=== PATIENT | female | born 1960 | race Caucasian/White ===

== ENCOUNTER 2017-03-17 17:23 | Emergency (ER) | payer BC ==
[2017-03-17] MEDS ORDERED: Bacitracin Oint 1 GM U/D Packet TOP ONE (18:58)
[2017-03-17 19:03] VITALS: BP 147/89
--- NOTE | 2017-03-17 19:31 | EDM.PDOC ---
[id number] 4d PUNCTURED FOOT Time Seen by Provider: 03/17/17 19:05 Source of Information: Reports: Patient History Limitations: Reports: No Limitations - History of Present Illness INITIAL COMMENTS - FREE TEXT/NARRATIVE: 56-year-old female with an injury to the arch of her right foot. [place] dock jamming her foot into the metal rim of a tire. She sustained a laceration and then had to walk across a dirty beach. She has a flap laceration in the arch of the foot which is very contaminated. Onset: Today Duration: Hour(s): (A few hours ago) - Related Data Allergies Allergy/AdvReac Type Severity Reaction Status Date / Time No Known Allergies Allergy Verified 03/17/17 18:54 Home Meds: Home Meds Aspirin 03/17/17 [History] Escitalopram [Lexapro] 03/17/17 [History] Levothyroxine [Synthroid] 03/17/17 [History] Lisinopril/Hydrochlorothiazide [Lisinopril-Hctz 20-12.5 mg Tab] 03/17/17 [ History] Pravastatin [Pravachol] 03/17/17 [History] rOPINIRole HCl [Ropinirole ER] 03/17/17 [History] Past Medical History Cardiovascular History: Reports: High Cholesterol, Hypertension - Past Surgical History GI Surgical History: Reports: Bariatric Procedure Social & Family History - Tobacco Use Smoking Status *Q: Never Smoker ED ROS GENERAL - Review of Systems Review Of Systems: See Below Constitutional: Denies: Fever, Chills Cardiovascular: Denies: Chest Pain Psychiatric: Reports: No Symptoms ED EXAM, SKIN/RASH Exam: See Below Exam Limited By: No Limitations General Appearance: Alert, No Apparent Distress Respiratory/Chest: No Respiratory Distress Extremities: Other (Rest of the exam is limited to the right foot. The patient has a 2.5 cm flap laceration and partial avulsion in the arch of the right foot. It is embedded with sand and dirt.) Course - Vital Signs Last Recorded V/S: Last Vital Signs Temp 97.3 F 03/17/17 19:01 Pulse 67 03/17/17 19:01 Resp 14 03/17/17 19:01 BP 147/89 H 03/17/17 19:01 Pulse Ox 98 03/17/17 19:01 - Orders/Labs/Meds Orders: Active Orders 24 hr Category Date Time Status Vaccines to be Administered [RC] PER UNIT ROUTINE Care 03/17/17 19:37 Active Meds: Medications Discontinued Medications Generic Name Dose Route Start Last Admin Trade Name Cielo PRN Reason Stop Dose Admin Bacitracin 1 dose 03/17/17 18:58 03/17/17 19:10 Bacitracin Oint 1 Gm TOP 03/17/17 18:59 1 dose ONETIME ONE Administration Diphtheria/Tetanus/Acell Pertussis 0.5 ml 03/17/17 19:37 03/17/17 19:41 Adacel IM 03/17/17 19:38 0.5 ml .ONCE ONE Administration Lidocaine HCl 5 ml 03/17/17 18:58 03/17/17 19:10 Xylocaine-Mpf 1% INJECT 03/17/17 18:59 5 ml ONETIME ONE Administration - Re-Assessments/Exams Free Text/Narrative Re-Assessment/Exam: 03/17/17 19:29 The area was infiltrated with 1% lidocaine and then scrubbed and flushed thoroughly with saline and Hibiclens. The wound was explored and all foreign body was removed. The flap was then closed with 4 4-0 Ethilon sutures. She was provided with Tdap Booster vaccination, topical bacitracin was applied, and I will have her take cephalexin 3 times daily for 1 week. Sutures can be removed in 8 days. Departure - Departure Time of Disposition: 19:59 Disposition: Home, Self-Care 01 Condition: Good Clinical Impression: Laceration of foot Qualifiers: Encounter type: initial encounter Laterality: right Qualified Code(s): S91.311A - Laceration without foreign body, right foot, initial encounter - Discharge Information Instructions: VIS, Diphtheria, Tetanus, and Pertussis (DTaP) - CDC, Laceration Care, Adult, [id number] Referrals: PCP,None [Primary Care Provider] - Forms: ED Department Discharge Care Plan Goals: Keep wound covered and clean while healing. Take antibiotic as directed. Increase activity as tolerated, remove sutures next Saturday in 8 days. Recheck sooner if concerns of infection or not healing satisfactorily. - My Orders Last 24 Hours: My Active Orders 03/17/17 19:37 Vaccines to be Administered [RC] PER UNIT ROUTINE - Assessment/Plan Last 24 Hours: My Active Orders 03/17/17 19:37 Vaccines to be Administered [RC] PER UNIT ROUTINE
[2017-03-17] MEDS ORDERED: Diphtheria,Pertussis(Acell),Tetanus Vaccine 0.5 ML SDV IM ONE (19:37)
== END 2017-03-17 19:59 | disposition home or self-care (01) ==
LOC: JP.ED 17:23
DX: S91.311A Laceration without foreign body, right foot, initial encounter (principal); E78.00 Pure hypercholesterolemia, unspecified; I10 Essential (primary) hypertension; Z98.84 Bariatric surgery status; Z23 Encounter for immunization; Z79.82 Long term (current) use of aspirin; W01.118A Fall on same level from slipping, tripping and stumbling with subsequent striking against other sharp object, initial encounter
CPT/HCPCS: 12001; 90471; 90715; 99283-25

== ENCOUNTER 2023-03-09 15:13 | Emergency (ER) | payer BC ==
[2023-03-09 16:53] VITALS: BP 112/65; PULSE 71
[2023-03-09] MEDS ORDERED: Acetaminophen/HYDROcodone 325-5 MG Tab PO ONE (17:06)
== END 2023-03-09 17:35 | disposition home or self-care (01) ==
LOC: JP.ED 15:13
DX: S99.191A Other physeal fracture of right metatarsal, initial encounter for closed fracture (principal); E78.00 Pure hypercholesterolemia, unspecified; I10 Essential (primary) hypertension; Z79.899 Other long term (current) drug therapy; X50.1XXA Overexertion from prolonged static or awkward postures, initial encounter
CPT/HCPCS: 29515; 73610; 73630; 99283; A9270